=== PATIENT | male | born 1960 | race Caucasian/White ===

== ENCOUNTER 2019-12-11 20:04 | Emergency (ER) | payer BC, OTHER ==
--- NOTE | 2019-12-11 22:31 | ED Physician Documentation ---
PD HPI FOCAL NEURO - Stated complaint Stated Complaint: BILAT BLURRED VISION - Chief complaint Chief Complaint: Neuro - History obtained from History obtained from: Patient - History of Present Illness Timing - onset: How many hours ago (2-3 hours ago) Timing - duration: Hours Timing - details: Abrupt onset Severity of deficit: Mild Associated symptoms: No: Headache Recently seen: Not recently seen - Additional information Additional information: only c/o is bilateral blurry vision. He had an episode a few weeks ago which resolved after approximately 30 minutes, and again a few hours ago tonight. on both occasions, he was looking at his cell phone, then looked up and noted that street signs appeared slightly blurry (both eyes). The symptoms have nearly resolved tonight prior to this evaluation, and he tests 20/20 OS and OD in triage. has appointment with PCP in the morning Review of Systems Constitutional: denies: Fever, Chills, Sweats Eyes: reports: Decreased vision. denies: Loss of vision, Photophobia, Discharge, Irritation Nose: denies: Congestion, Sinus pressure / pain Cardiac: reports: Reviewed and negative Respiratory: reports: Reviewed and negative Skin: denies: Rash Neurologic: reports: Reviewed and negative PD PAST MEDICAL HISTORY - Past Medical History Past Medical History: No - Allergies Allergies/Adverse Reactions: Allergies Allergy/AdvReac Type Severity Reaction Status Date / Time No Known Drug Allergies Allergy Verified 12/11/19 20:31 - Social History Does the pt smoke?: No Smoking Status: Never smoker Does the pt drink ETOH?: Yes Does the pt have substance abuse?: No - POLST Patient has POLST: No PD ED PE NORMAL - Vitals Vital signs reviewed: Yes - General General: Alert and oriented X 3, No acute distress, Well developed/nourished - HEENT HEENT: PERRL, EOMI, Moist mucous membranes - Neck Neck: Supple, no meningeal sign - Cardiac Cardiac: RRR, No murmur - Neuro Neuro: Alert and oriented X 3, academic associate 2-12 intact, No motor deficit, No sensory deficit, Normal speech Eye Opening: Spontaneous Motor: Obeys Commands Verbal: Oriented GCS Score: 15 NIHSS - Time Time: 20:10 (NIHSS not performed, as he only has bilateral blurry vision as c/o and no other neurologic c/o) Results - Vitals Vitals: Vital Signs - 24 hr 12/11/19 12/12/19 23:10 00:49 Temperature 36.5 C 36.4 C L Heart Rate 52 L 67 Respiratory 18 18 Rate Blood Pressure 146/89 H 128/92 H O2 Saturation 99 97 Oxygen O2 Source Room air - Rads (name of study) CTH Radiology: Prelim report reviewed, See rad report PD MEDICAL DECISION MAKING - ED course Complexity details: reviewed results, re-evaluated patient, considered differential, d/w patient ED course: IOP measured in right eye (he says his eyes have been equally symptomatic, so did not also measure left). Right eye IOP 14 (average of six readings). No tests beyond the IOP measurement and CTH performed Departure - Departure Disposition: 01 Home, Self Care Clinical Impression: Visual blurriness Condition: Good Instructions: ED Blurred Vision Follow-Up: Veronica Min MD [Primary Care Provider] - Discharge Date/Time: 12/12/19 00:53
--- NOTE | 2019-12-11 23:53 | CT Report ---
Reason: visual changes Procedure Date: 12/11/2019 Accession Number: [id number] / [id number] Procedure: CT - HEAD WO CPT Code: Final Report FULL RESULT: EXAM: CT HEAD EXAM DATE: 12/11/2019 11:27 PM. CLINICAL HISTORY: Visual changes. COMPARISON: None. TECHNIQUE: Multiaxial CT images were obtained from the foramen magnum to the vertex. Reformats: Sagittal and coronal. IV contrast: None. In accordance with CT protocol optimization, one or more of the following dose reduction techniques were utilized for this exam: automated exposure control, adjustment of mA and/or KV based on patient size, or use of iterative reconstructive technique. FINDINGS: Parenchyma: No intraparenchymal hemorrhage. No evidence of mass, midline shift, or CT findings of infarction. Cantor-white differentiation is distinct. Extraaxial Spaces: Normal for age. No subdural or epidural collections identified. Ventricles: Normal in size and position. Sinuses and Orbits: Imaged paranasal sinuses, orbits, and mastoids show no significant abnormality. Bones: No evidence of fracture or calvarial defect. Other: None. IMPRESSION: Normal head CT. RADIA
[2019-12-12 00:50] VITALS: BP 128/92
== END 2019-12-12 00:53 | disposition home or self-care (01) ==
LOC: ED 20:04
DX: H53.8 Other visual disturbances (principal)
CPT/HCPCS: 70450; 99282; 99284

== ENCOUNTER 2020-06-03 06:13 | Emergency (ER) | payer BC ==
[2020-06-03 06:25] VITALS: BP 161/102
--- NOTE | 2020-06-03 07:38 | ED Physician Documentation ---
PD HPI HEAD INJURY - Stated complaint Stated Complaint: HEAD LAC - Chief complaint Chief Complaint: Laceration - History obtained from History obtained from: Patient - History of Present Illness Mechanism of head injury: Fell Where head injury occurred: Home Timing - onset: Today Location of injury: Left, Front Quality of pain: Pain Associated symptoms: No: LOC, AMS, Amnesia, Nausea / vomiting, Neck pain, Paresthesias, Seizures, Ear drainage, Nasal drainage Symptoms improve with: Rest Symptoms worsen with: Palpation, Movement Contributing factors: No: Anticoagulated Similar symptoms before: Diagnosis (laceration, abrasion) Recently seen: Not recently seen - Additional information Additional information: Previously well 60-year-old male went to check on the circulation pump in his hot tub when he bent over he fell forward striking his head against a flower pot that was broken. He has an abrasion to his scalp. He did not have loss of consciousness and he denies any pain in his neck denies any pain elsewhere. He is up-to-date on his tetanus. Review of Systems Constitutional: denies: Fever, Sweats Eyes: denies: Decreased vision, Photophobia Ears: denies: Ear pain Nose: denies: Congestion Throat: denies: Sore throat Respiratory: denies: Dyspnea GI: denies: Nausea, Vomiting PD PAST MEDICAL HISTORY - Past Medical History Past Medical History: Yes Cardiovascular: Hypertension - Past Surgical History Past Surgical History: No - Present Medications Home Medications: Ambulatory Orders Medication Instructions Recorded Confirmed amLODIPine [Norvasc] 5 mg PO DAILY 06/03/20 06/03/20 - Allergies Allergies/Adverse Reactions: Allergies Allergy/AdvReac Type Severity Reaction Status Date / Time No Known Drug Allergies Allergy Verified 06/03/20 06:24 - Social History Does the pt smoke?: No Smoking Status: Never smoker Does the pt drink ETOH?: Yes Does the pt have substance abuse?: No - Immunizations Immunizations are current?: Yes - POLST Patient has POLST: No PD ED PE NORMAL - Vitals Vital signs reviewed: Yes (Hypertensive) - General General: Alert and oriented X 3, No acute distress, Well developed/nourished - HEENT HEENT: PERRL, EOMI, Other (There is an abrasion to the scalp over the anterior parietal area. ) - Neck Neck: Supple, no meningeal sign, No bony TTP - Respiratory Respiratory: No respiratory distress - Derm Derm: Normal color, Warm and dry, No rash - Extremities Extremities: No deformity, No edema, No calf tenderness / cord - Neuro Neuro: Alert and oriented X 3, slip cover seamstress 2-12 intact, No motor deficit, No sensory deficit, Normal speech Eye Opening: Spontaneous Motor: Obeys Commands Verbal: Oriented GCS Score: 15 - Psych Psych: Normal mood, Normal affect Results - Vitals Vitals: Vital Signs - 24 hr 06/03/20 06:15 Temperature 36.3 C L Heart Rate 84 Respiratory 14 Rate Blood Pressure 161/102 H O2 Saturation 95 Oxygen O2 Source Room air PD MEDICAL DECISION MAKING - ED course Complexity details: considered differential, d/w patient ED course: 60-year-old male with a deep abrasion to the scalp on the left side did not have loss of consciousness with the injury his wounds were cleansed and he will follow-up as needed Departure - Departure Disposition: 01 Home, Self Care Clinical Impression: Scalp abrasion Qualifiers: Encounter type: initial encounter Qualified Code(s): S00.01XA - Abrasion of scalp, initial encounter Condition: Stable Instructions: ED Abrasion Follow-Up: [facility] [Provider Group] Discharge Date/Time: 06/03/20 07:57
== END 2020-06-03 07:57 | disposition home or self-care (01) ==
LOC: ED 06:13
DX: S00.01XA Abrasion of scalp, initial encounter (principal); W01.118A Fall on same level from slipping, tripping and stumbling with subsequent striking against other sharp object, initial encounter; Y93.89 Activity, other specified; Y92.007 Garden or yard of unspecified non-institutional (private) residence as the place of occurrence of the external cause; I10 Essential (primary) hypertension
CPT/HCPCS: 99281; 99282

== ENCOUNTER 2022-02-22 17:38 | Outpatient (CLI) | payer BC | END 2022-02-22 17:39 | disposition critical access hospital (66) | LOC: EMS 17:38 | DX: M54.50 Low back pain, unspecified (principal) | CPT/HCPCS: A0425; A0429 ==

== ENCOUNTER 2022-02-22 18:13 | Emergency (ER) | payer BC ==
[2022-02-22] MEDS ORDERED: KETOROLAC 30 MG/ML VIAL IVP STA (18:23)
[2022-02-22] MEDS ORDERED: HYDROmorphone 1 MG/ML CARPUJECT IVP STA (18:23)
[2022-02-22] MEDS ORDERED: diazePAM INJ 5 MG/ML SYRINGE IVP STA (18:23)
--- NOTE | 2022-02-22 18:26 | ED Physician Documentation ---
PD HPI BACK PAIN - Stated complaint Stated Complaint: BACK PX - Chief complaint Chief Complaint: Back Pain - History obtained from History obtained from: Patient - History of Present Illness Timing - onset: How many days ago (3) Timing - duration: Days (3) Timing - details: Gradual onset Location: Lower, Right, Left Quality: Pain, Spasm, Similar to prior episodes Associated symptoms: No: Fever, Weakness, Numbness, Incontinent of urine, Unable to urinate, Hematuria, Incontinent of stool Improves with: Rest Worsened by: Movement Contributing factors: Lifting. No: Trauma, Anticoagulated, Cancer, IVDA, Out of meds Recently seen: Not recently seen - Additional information Additional information: Patient is a 61-year-old male who presents to the emergency department for low back pain. He states this started after moving a box of fish about 3 days ago. Has gradually worsened since that time. He states he does have a history of chronic back pain. He states normally it is manageable at home, but the spasm has worsened over the past few days and unable to get out of bed today. He took a Flexeril without relief as well as Motrin this morning. His significant other has been bringing him a bottle to urinate and. No numbness or tingling. No incontinence of urine or stool. No IV drug use. No cancer. Not anticoagulated. No back surgeries. Review of Systems Ten Systems: 10 systems reviewed and negative Constitutional: denies: Fever, Chills Nose: denies: Rhinorrhea / runny nose Throat: denies: Sore throat Cardiac: denies: Chest pain / pressure Respiratory: denies: Cough GI: denies: Abdominal Pain, Nausea, Vomiting, Diarrhea : denies: Dysuria, Frequency, Hesitancy, Incontinent Skin: denies: Rash Musculoskeletal: denies: Neck pain Neurologic: denies: Headache PD PAST MEDICAL HISTORY - Past Medical History Cardiovascular: Hypertension - Past Surgical History Past Surgical History: No - Present Medications Home Medications: Ambulatory Orders Medication Instructions Recorded Confirmed amLODIPine [Norvasc] 5 mg PO DAILY 06/03/20 02/22/22 Oxycodone HCl/Acetaminophen 1 - 2 each PO Q6H PRN #20 tablet 02/22/22 [Percocet 5-325 mg Tablet] methocarbamoL [Robaxin] 500 mg PO Q6H PRN #20 tablet 02/22/22 - Allergies Allergies/Adverse Reactions: Allergies Allergy/AdvReac Type Severity Reaction Status Date / Time No Known Drug Allergies Allergy Verified 02/22/22 18:56 - Social History Does the pt smoke?: No Smoking Status: Never smoker Does the pt drink ETOH?: Yes Does the pt have substance abuse?: No - Immunizations Immunizations are current?: Yes - POLST Patient has POLST: No PD ED PE NORMAL - Vitals Vital signs reviewed: Yes - General General: Alert and oriented X 3, No acute distress - HEENT HEENT: Atraumatic, Moist mucous membranes - Neck Neck: Supple, no meningeal sign, No bony TTP - Cardiac Cardiac: RRR, Strong equal pulses - Respiratory Respiratory: No respiratory distress, Clear bilaterally - Abdomen Abdomen: Soft, Non tender, Non distended - Back Back: No spinal TTP, Other (Paraspinal spasm lower lumbar. No midline tenderness palpation or percussion. No step-off or deformity.) - Derm Derm: Warm and dry - Extremities Extremities: No edema, No calf tenderness / cord, Other (Normal bilateral lower extremity patellar and ankle jerk reflexes. Normal great toe extension bilaterally. no saddle anesthesia) - Neuro Neuro: Alert and oriented X 3, live study manager 2-12 intact, No motor deficit, No sensory deficit - Psych Psych: Normal mood, Normal affect Results - Vitals Vitals: Vital Signs - 24 hr 02/22/22 02/22/22 18:18 20:00 Temperature 36.9 C Heart Rate 91 97 Respiratory 18 18 Rate Blood Pressure 158/106 H 122/94 H O2 Saturation 95 97 Oxygen O2 Source Room air PD MEDICAL DECISION MAKING - ED course Complexity details: reviewed results, re-evaluated patient, considered differential (No cauda equina, no spinal epidural abscess, no fracture, no a ortic dissection or evidence of aneursym rupture), d/w patient ED course: Patient was given Dilaudid, Valium, Toradol. Pain gradually improved and the patient was able to be set up. Feels much better. No evidence of fracture. No indication for emergent imaging. No evidence of cauda equina. No evidence of epidural abscess. Will place on pain medication and muscle relaxants for home and have him follow-up with his doctor for further care. Patient counseled regarding signs and symptoms for which I believe and urgent re-evaluation would be necessary. Patient with good understanding of and agreement to plan and is comfortable going home at this time This document was made in part using voice recognition software. While efforts are made to proofread this document, sound alike and grammatical errors may occur. Departure - Departure Disposition: 01 Home, Self Care Clinical Impression: Back muscle spasm Condition: Good Instructions: ED Spasm Back No Trauma Follow-Up: Lauren Ontiveros MD [Primary Care Provider] - Within 1 week Prescriptions: Oxycodone HCl/Acetaminophen [Percocet 5-325 mg Tablet] 1 - 2 each PO Q6H PRN #20 tablet PRN Reason: pain methocarbamoL [Robaxin] 500 mg PO Q6H PRN #20 tablet PRN Reason: muscle spasm Comments: Please follow-up with your doctor for further care. Continue to gently move around the house. We do want you to gently stretch your back. Do not overdo it. Heating pads may also help. Return if you worsen. Your prescriptions were sent to [facility] in [place]. I am prescribing a short course of narcotic pain medication for you. These are potentially dangerous and addictive medications that should be used carefully. These medications may constipate you. Take an [id number] stool softener (docusate) twice daily with plenty of water while taking these medications. If you go 24 hours without a bowel movement, take [id number] miralax, per package instructions. Do not drink or drive while taking these medications. If you received narcotic or sedating medications while in the emergency department, do not drive for 24 hours. Store this medication in a safe, secure place and out of reach of children. It is a violation of federal law to give or sell this medication to another person or to use in a manner other than prescribed. The ED will not refill narcotic prescriptions, including prescriptions lost or stolen. To dispose of unwanted medications: 1. [facility] [address] in [place] has a medication drop box. They accept prescription medications (in pill form) Sunday through Sunday 9:00 a.m. to 5:00 p.m. 2. The [facility] [employer] accepts prescription medications (in pill form only) for disposal year round. Call for more information. 3. Contact the [facility] for the next [facility] sponsored prescription drug collection event. , [phone], or [phone];
[2022-02-22] MEDS ORDERED: oxyCODONE 5 MG TABLET PO STA (20:05)
[2022-02-22] MEDS ORDERED: oxyCODONE/ACET 5/325 Prepack 4 PO STA (20:43)
[2022-02-22 21:03] VITALS: BP 138/96
== END 2022-02-22 21:00 | disposition home or self-care (01) ==
LOC: EDUNIT# → ED 18:13
DX: M62.830 Muscle spasm of back (principal)
CPT/HCPCS: 96374; 96375; 99282; 99283; A9270; J1170